=== PATIENT | male | born 1945 | race Caucasian/White ===

== ENCOUNTER → 2020-10-24 | Outpatient (CLI) | payer MEDICARE, OTHER ==
[~2020-10-24] VITALS: Ht 177.8 cm; Wt 78.0 kg
[~2020-10-24] MED LIST: ASPIRIN; ASPIRIN E.C. 8181 MG PO; FLOMAX 0.40.4 MG/CAP PO; PRILOSEC 20MG20 MG PO; SYNTHROID 0.10.15 MG PO; SYNTHROID0.05 MG/TA PO; TOPROL XL 25MG25 MG PO; ZETIA 10MG TAB10 MG PO; ZOCOR 40MG40 MG PO; ZYLOPRIM 300MG300 MG PO; ZYRTEC 10MG10 MG PO
[2020-10-24 10:01] VITALS: BP 127/64; PULSE 50; TEMP 98
--- NOTE | 2020-10-24 11:08 | NUR ---
Dr Horn into see pt before procedure, explaining would not be doing biospy today due to location and surrounding structures, being unsafe. pt verbilizes understanding. Dr ruffin spoke with Dr Bustillo on not doing procedure also, iv dc'd intact, then pt walked to waiting room for discharge
== END ==
LOC: COL.RAD 09:24
DX: C61 Malignant neoplasm of prostate (principal); Z51.0 Encounter for antineoplastic radiation therapy